=== PATIENT | male | born 2000 | race Caucasian/White ===

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

== ENCOUNTER 2019-01-26 10:54 | Emergency (ER) | payer BC, OTHER ==
[2019-01-26] MEDS ORDERED: diphenhydrAMINE 50 MG Cap PO ONE ×2 (11:13→11:30)
--- NOTE | 2019-01-26 11:18 | EDM.PDOC ---
ED HPI GENERAL MEDICAL PROBLEM - General Chief Complaint: Skin Complaint Stated Complaint: RASHES Time Seen by Provider: 01/26/19 11:09 - History of Present Illness INITIAL COMMENTS - FREE TEXT/NARRATIVE: HISTORY AND PHYSICAL: History of present illness: The patient is a 18-year-old male who presents with complaints of a diffuse body rash which spares his face that occurred on Sunday, 4 days ago and has persisted. He has not taken any [id number] meds and he says that he attributes this to the use of Tide laundry detergent which was new to him on Sunday. He has since changed laundry detergents and rewash is closed and says that the symptoms are improved but not completely gone. He says he had no shortness of breath no lip tongue or mouth swelling and no difficulty speaking or swallowing. He says he just feels very itchy. Review of systems: As per history of present illness and below otherwise all systems reviewed and negative. Past medical history: As per history of present illness and as reviewed below otherwise noncontributory. Surgical history: As per history of present illness and as reviewed below otherwise noncontributory. Social history: No reported history of drug or alcohol abuse. Family history: As per history of present illness and as reviewed below otherwise noncontributory. Physical exam: General: Well-developed well-nourished man who is nontoxic and speaks clearly and easily in the ED. Vital signs are reviewed by me HEENT: Atraumatic, normocephalic, pupils reactive, negative for conjunctival pallor or scleral icterus, mucous membranes moist, throat clear, neck supple, nontender, trachea midline. There is no facial or oropharyngeal swelling noted and the rash as described above spares the face Lungs: Clear to auscultation, breath sounds equal bilaterally, chest nontender. No wheezing and stridor Heart: S1S2, regular and rhythm no overt murmurs Abdomen: Soft, nondistended, nontender. NABS Pelvis: Deferred Genitourinary: Deferred. Rectal: Deferred. Extremities: Atraumatic, full range of motion. Neurovascular unremarkable. Neuro: Awake, alert, oriented. Cranial nerves II through XII unremarkable. Cerebellum unremarkable. Motor and sensory unremarkable throughout. Exam nonfocal. Skin: There is a diffuse maculopapular rash seen on the extremities which is only faint on the chest and abdomen and is absent on the back as well as the neck and it spares the face. Diagnostics: [] Therapeutics: Benadryl Impression: Contact reaction/allergic reaction Definitive disposition and diagnosis as appropriate pending reevaluation and review of above. - Related Data Allergies Allergy/AdvReac Type Severity Reaction Status Date / Time tide pods Allergy Rash Uncoded 01/26/19 11:05 Home Meds: Home Meds . [No Known Home Meds] 07/28/18 [History] Past Medical History - Past Health History Medical/Surgical History: Denies Medical/Surgical History - Infectious Disease History Infectious Disease History: Reports: None Social & Family History - Family History Family Medical History: Noncontributory - Tobacco Use Smoking Status *Q: Never Smoker - Caffeine Use Caffeine Use: Reports: None - Recreational Drug Use Recreational Drug Use: No ED ROS GENERAL - Review of Systems Review Of Systems: ROS reveals no pertinent complaints other than HPI. ED EXAM, SKIN/RASH Exam: See Below (See dictation) Course - Vital Signs Last Recorded V/S: Last Vital Signs Temp 36.5 C 01/26/19 11:03 Pulse 79 01/26/19 11:03 Resp 18 01/26/19 11:03 BP 122/87 01/26/19 11:03 Pulse Ox 100 01/26/19 11:03 - Orders/Labs/Meds Meds: Medications Discontinued Medications Generic Name Dose Route Start Last Admin Trade Name Freq PRN Reason Stop Dose Admin Diphenhydramine HCl 50 mg 01/26/19 11:13 Benadryl PO 01/26/19 11:14 ONETIME ONE Departure - Departure Time of Disposition: 11:17 Disposition: Home, Self-Care 01 Condition: Good Clinical Impression: Contact allergic reaction - Discharge Information Referrals: PCP,None [Primary Care Provider] - Additional Instructions: The following information is given to patients seen in the emergency department who are being discharged to home. This information is to outline your options for follow-up care. We provide all patients seen in our emergency department with a follow-up referral. The need for follow-up, as well as the timing and circumstances, are variable depending upon the specifics of your emergency department visit. If you don't have a primary care physician on staff, we will provide you with a referral. We always advise you to contact your personal physician following an emergency department visit to inform them of the circumstance of the visit and for follow-up with them and/or the need for any referrals to a consulting specialist. The emergency department will also refer you to a specialist when appropriate. This referral assures that you have the opportunity for followup care with a specialist. All of these measure are taken in an effort to provide you with optimal care, which includes your followup. Under all circumstances we always encourage you to contact your private physician who remains a resource for coordinating your care. When calling for followup care, please make the office aware that this follow-up is from your recent emergency room visit. If for any reason you are refused follow-up, please contact the [facility] emergency department at and ask to speak to the emergency department charge nurse. [facility] Primary [facility]- Internal Medicine and Family [address] [id number] Please take Benadryl 50 mg every 6 hours for the next 24 hours and then switch to [id number] Valentina or Claritin and take per the package instructions for the next 4 days. Use the Medrol Dosepak as you have been prescribed from [facility]. Try to avoid scratching and itching the area is and he may apply topical hydrocortisone or Benadryl cream to the areas that are itching most. Please call and schedule follow-up appointment in the clinic and return to ER as needed and as discussed
[2019-01-26] MEDS ORDERED: diphenhydrAMINE 50 MG Cap ONE (11:26)
== END 2019-01-26 11:31 | disposition home or self-care (01) ==
LOC: MW.ED 10:54
DX: L23.9 Allergic contact dermatitis, unspecified cause (principal); Z91.09 Other allergy status, other than to drugs and biological substances
CPT/HCPCS: 99282; A9270

== ENCOUNTER 2022-04-26 15:14 | Emergency (ER) | payer BC | END 2022-04-26 16:39 | disposition home or self-care (01) | LOC: MW.ED 15:14 | DX: S43.005A Unspecified dislocation of left shoulder joint, initial encounter (principal); Z91.09 Other allergy status, other than to drugs and biological substances; X50.1XXA Overexertion from prolonged static or awkward postures, initial encounter | CPT/HCPCS: 73020-26-LT; 73020-LT; 73030-26-LT; 73030-LT; 99283-25 ==